=== PATIENT | female | born 1950 | race Caucasian/White ===

== ENCOUNTER → 2021-07-25 12:17 | Outpatient (BNVA) | payer MEDICARE, SELFPAY | PROVIDERS: PCP Obstetrics & Gynecology; Visit Provider Nurse Practitioner | DX: R05 Cough (principal); J30.2 Other seasonal allergic rhinitis | CPT/HCPCS: 71046 ==

== ENCOUNTER → 2022-11-15 12:25 | Outpatient (BNVA) | payer MEDICARE, SELFPAY | PROVIDERS: PCP Obstetrics & Gynecology; Visit Provider Emergency Medicine | DX: R50.9 Fever, unspecified (principal); J20.9 Acute bronchitis, unspecified; J10.1 Influenza due to other identified influenza virus with other respiratory manifestations | CPT/HCPCS: 87400 ==